=== PATIENT | male | born 1965 | race Caucasian/White ===

== ENCOUNTER 2019-05-21 19:47 | Emergency (ER) | payer MEDICAID ==
[~2019-05-21] VITALS: Ht 175.3 cm; Wt 68.0 kg
[2019-05-21 20:02] VITALS: BP 115/76
== END 2019-05-21 22:08 | disposition left against medical advice (07) ==
LOC: ER 19:48
DX: M79.602 Pain in left arm (principal); M79.89 Other specified soft tissue disorders; Z53.21 Procedure and treatment not carried out due to patient leaving prior to being seen by health care provider

== ENCOUNTER 2019-08-12 21:20 | Emergency (ER) | payer MEDICAID ==
[~2019-08-12] VITALS: Ht 180.3 cm; Wt 95.5 kg
--- NOTE | 2019-08-12 21:31 | NUR ---
NOTIFIED DR COTTO RECTAL TEMP OF 94.0
--- NOTE | 2019-08-12 21:40 | NUR ---
THADDEUS SAGASTUME APPLIED.
[2019-08-12] MEDS ORDERED: ondansetron/PF 4mg/2ml inj IV ONE (21:45)
--- NOTE | 2019-08-12 22:01 | NUR ---
NO MEDICAL HX FOUND IN PAST VISITS
[2019-08-12] MEDS ORDERED: normal saline 1000ML IV soln IV ONE (22:05)
[2019-08-12 22:29] LABS: CLARITY,URINE CLEAR (Clear); COLOR,URINE YELLOW (Yellow); GLUCOSE, URINE NEGATIVE (Neg); KETONES,URINE NEGATIVE (Neg); LEUKOCYTE ESTERASE ,URINE NEGATIVE (Neg); NITRITES, URINE NEGATIVE (Neg); OCCULT BLOOD,URINE TRACE-INTACT (Neg); PROTEIN,URINE NEGATIVE (Neg); UROBILINOGEN,URINE 0.2 E.U/dL (0.2-1.0)
[2019-08-12 22:34] LABS: UA COLLECTION TYPE FOLEY CATH
[2019-08-12 22:36] LABS: RBC,URINE 0-2 /HPF (0-2); WBC,URINE 0-4 /HPF (0-4)
[2019-08-12 22:37] LABS: BACTERIA,URINE NONE SEEN /HPF (Neg); MUCUS STRANDS NONE SEEN /LPF (Neg); SQUAMOUS EPITHELIAL CELL,UR NONE SEEN /LPF (FEW); TRANSITIONAL EPI CELLS,URINE FEW /HPF
[2019-08-12] MEDS ORDERED: naloxone 0.4 mg/ml inj IV PRN (22:40)
--- NOTE | 2019-08-12 22:45 | NUR ---
notify officer colton santillan 133 case # [id number] when pt is medically cleared for [facility]
[2019-08-12 22:57] LABS: BASOPHILS # (AUTO) 0.1 X10'3 (0-0.2); BASOPHILS % (AUTO) 0.8 % (0-1); EOSINOPHILS % (AUTO) 0.8 % (0-6); HEMATOCRIT 40.8 % (42.0-52.0); HEMOGLOBIN 13.9 g/dl (14.0-17.9); LYMPHOCYTES # (AUTO) 1.8 X10'3 (1.1-4.8); LYMPHOCYTES % (AUTO) 27.6 % (21-51); MEAN CORPUSCULAR HEMOGLOBIN 31.9 PG (27.0-31.0); MEAN CORPUSCULAR HGB CONC 34.1 g/dL (33.0-36.5); MEAN CORPUSCULAR VOLUME 93.6 FL (78-98); MEAN PLATELET VOLUME 6.7 FL (7.4-10.4); MONOCYTES # (AUTO) 0.2 X10'3 (0-0.9); MONOCYTES % (AUTO) 3.4 % (2-12); NEUTROPHILS # (AUTO) 4.3 X10'3 (1.8-7.7); NEUTROPHILS % (AUTO) 67.4 % (42-75); PLATELET COUNT 230 X10'3 (140-440); RED BLOOD COUNT 4.36 X10'6 (4.70-6.10); RED CELL DISTRIBUTION WIDTH 12.3 % (11.5-14.5); WHITE BLOOD COUNT 6.4 X10'3 (4.5-11.0)
[2019-08-12 23:05] LABS: PARTIAL THROMBOPLASTIN TIME 25 SECONDS (22-32)
[2019-08-12 23:08] LABS: ALANINE AMINOTRANSFERASE 22 U/L (12-78); ALBUMIN 3.1 G/DL (3.4-5.0); ALKALINE PHOSPHATASE 76 IU/L (46-116); ANION GAP 9 (8-16); ASPARTATE AMINO TRANSFERASE 32 U/L (10-37); BILIRUBIN,TOTAL 0.2 MG/DL (0.1-1.0); BLOOD UREA NITROGEN 13 MG/DL (7-18); BUN/CREATININE RATIO 10.7 (5.4-32.0); CALCIUM 7.7 MG/DL (8.5-10.1); CHLORIDE 107 MMOL/L (99-107); CREATININE 1.21 MG/DL (0.60-1.10); GLUCOSE 127 MG/DL (70-104); POTASSIUM 3.5 MMOL/L (3.5-5.1); SODIUM 143 MMOL/L (135-145); TOTAL CARBON DIOXIDE 27.5 MMOL/L (24-32); TOTAL PROTEIN 6.2 G/DL (6.4-8.2); eGFR 62 ML/MIN
[2019-08-12 23:18] LABS: ETHANOL 0.267 GM/DL (0.0-0.010); MAGNESIUM 1.9 MG/DL (1.5-2.4)
[2019-08-12 23:37] LABS: URINE AMPHETAMINE SCREEN POSITIVE (Neg); URINE BARBITUATE SCREEN NEGATIVE (Neg); URINE BENZODIAZEPINES SCREEN NEGATIVE (Neg); URINE CANNABINOID SCREEN NEGATIVE (Neg); URINE COCAINE SCREEN NEGATIVE (Neg); URINE METHADONE SCREEN NEGATIVE (Neg); URINE OPIATE SCREEN NEGATIVE (Neg); URINE PHENCYCLIDINE SCREEN NEGATIVE (Neg)
--- NOTE | 2019-08-13 00:29 | NUR ---
Discussed pt's BP with Dr Thomas; additional fluids to be administered
[2019-08-13] MEDS ORDERED: normal saline 1000ML IV soln IVB ONE (00:30)
--- NOTE | 2019-08-13 01:32 | NUR ---
Pt AOX3 but was unclear about why he was in the hospital. He reports a hx of low BP saying, "It's better now I stopped smoking." Will continue to monitor BP.
--- NOTE | 2019-08-13 02:22 | NUR ---
Pt pulled IV out and attempted to remove FC, which he did not. FC was properly removed with 800ml urine out. Pt asking about date and time indicating he has "to be a job in the morning." Per RADHA Nieto, [employer] has been contacted.
[2019-08-13 02:26] VITALS: BP 87/56
--- NOTE | 2019-08-13 02:27 | NUR ---
pt requesting paredes removed upon inspection pt had broken off the temp monitoring cable pulled the urine drainage bag off of the paredes leaving the paredes hanging in the bed. H e had broken the cap off of his iv yport and the tubing was lying in the bed and he had pulled off all monitoring equipment.
== END 2019-08-13 02:51 ==
LOC: ER 21:21
DX: T68.XXXA Hypothermia, initial encounter (principal); F10.929 Alcohol use, unspecified with intoxication, unspecified; G93.41 Metabolic encephalopathy; R79.1 Abnormal coagulation profile; F15.10 Other stimulant abuse, uncomplicated; X31.XXXA Exposure to excessive natural cold, initial encounter; Y90.9 Presence of alcohol in blood, level not specified
CPT/HCPCS: 36415; 71045; 80053; 80305; 80320; 81001; 82948; 83605; 83735; 84145; 84443; 85025; 85610; 85730; 87040; 93005; 96374; 96375; 99284; J2310; J2405; J7030

== ENCOUNTER 2025-01-14 13:38 | Outpatient (CLI) | payer MEDICAID ==
--- NOTE | 2025-01-15 07:47 | RADIOLOGY REPORT ---
CLINICAL INFORMATION: 59 years old, Male; PAIN IN LEFT SHOULDER. TECHNIQUE: Multisequence multiplanar MRI images of the rule right shoulder were obtained without con trast. COMPARISON: None FINDINGS: Acromioclavicular joint: There is [id number] acromioclavicular hypertrophy and [id number]-zy-[id number] edema. There is type 1 acromion. Small to moderate amount of fluid in the subacromial / subdeltoid b ursa. Rotator cuff tendons: Focal full-thickness or near full-thickness tear of the supraspinatus tendon fr om its insertion measuring up to 1.2 cm in AP dimension, and up to 1.5 cm in proximal to distal dimen balta. There may be some thin articular surface fibers remaining intact in portions of the tear locati on. There is articular surface fraying and partial-thickness articular surface tear involving the pos terior fibers of the infraspinatus tendon measuring up to 1.6 cm in AP dimension and up to 1.4 cm in proximal 2 distal dimension, involving up to 50% of the tendon thickness. Mild tendinosis of the dist al subscapularis tendon with articular surface fraying and ill-defined partial-thickness articular ayala rface tear near the insertion, with portions of the tear likely involving greater than 50% of the te ndon thickness. Teres minor tendon is intact. Biceps tendon: There appears to be some intrasubstance signal in the long head biceps tendon along it s proximal intra-articular course, possible longitudinal split tear, although poorly evaluated due to motion artifact. More distally of the bicipital groove, the long head biceps tendon is intact and ot herwise unremarkable. Labrum: Fraying of the superior labrum. Bones: No fracture or focal marrow contusion. Muscles: Normal muscle bulk. No significant atrophy. No evidence of muscle strain or tear. Other: No other significant findings. IMPRESSION: 1. Rotator cuff tendinosis with focal full-thickness or near full-thickness tear of the supraspinatus tendon involving the anterior fibers of the insertion. Partial-thickness tears in the distal infrasp inatus and subscapularis tendons as detailed above. 2. Intrasubstance signal of the long head biceps tendon along its proximal intra-articular course, po ssible longitudinal split tear, although poorly evaluated due to motion artifact. 3. Fraying of the superior labrum. 4. [id number] acromioclavicular hypertrophy.
== END 2025-01-14 23:59 | disposition home or self-care (01) ==
LOC: MRI02 13:38
PROVIDERS: ATTEND Family Medicine Sports Medicine
DX: M75.121 Complete rotator cuff tear or rupture of right shoulder, not specified as traumatic (principal); M25.512 Pain in left shoulder; M77.9 Enthesopathy, unspecified; M25.511 Pain in right shoulder; M89.311 Hypertrophy of bone, right shoulder
CPT/HCPCS: 73221